=== PATIENT | female | born 1975 | race Two or more races ===

== ENCOUNTER 2019-04-11 16:43 | Emergency (ER) | payer MEDICAID ==
[~2019-04-11] VITALS: Ht 139.7 cm; Wt 63.8 kg
[2019-04-11 17:50] LABS: CLARITY,URINE CLOUDY (Clear); COLOR,URINE YELLOW (Yellow); GLUCOSE, URINE NEGATIVE (Neg); KETONES,URINE NEGATIVE (Neg); LEUKOCYTE ESTERASE ,URINE MODERATE (Neg); NITRITES, URINE NEGATIVE (Neg); OCCULT BLOOD,URINE LARGE (Neg); PH,URINE 6.5 (4.8-8.0); PROTEIN,URINE 30 mg/dl (Neg); UROBILINOGEN,URINE 0.2 E.U/dL (0.2-1.0)
[2019-04-11 17:55] LABS: UA COLLECTION TYPE CLN CATCH MIDSTREAM
[2019-04-11 17:59] LABS: BACTERIA,URINE FEW /HPF (Neg); MUCUS STRANDS FEW /LPF (Neg); RBC,URINE 20-50 /HPF (0-2); SQUAMOUS EPITHELIAL CELL,UR FEW /LPF (FEW); WBC,URINE 30-50 /HPF (0-4)
[2019-04-11] MEDS ORDERED: CEPH-572 PO (18:19)
[2019-04-11 18:29] VITALS: BP 117/70
== END 2019-04-11 18:30 | disposition home or self-care (01) ==
LOC: ER 16:44
DX: R07.89 Other chest pain (principal); N39.0 Urinary tract infection, site not specified
CPT/HCPCS: 81001; 87077; 87088; 87186; 93005; 99284

== ENCOUNTER 2024-11-12 08:12 | Day surgery (SDC) | payer MEDICARE, MEDICAID ==
[2024-11-12] VITALS (7 sets, daily range): BP systolic 80–95; BP diastolic 40–55; PULSE 50–56; RESP 12–16; O2SAT 97–100
[~2024-11-12 08:12] MED LIST: ATOR10TA10 PO; HYDR-3686 PO; LEVO50CA5 PO; MIDAZolam 1 MG/ML 5ML VIAL ONE; QUET25TA PO; SIME125C43 PO; fentaNYL/PF 50MCG/1 ML 2ML syringe ONE; ringers solution, lacted 1,000 ML IV SCH
--- NOTE | 2024-11-13 15:19 | PATHOLOGY REPORT ---
[facility] [address] [place] [address] SURGICAL PATHOLOGY REPORT CaseNumber: [id number] Surgeon:Joel Spring M.D. CLINICAL INFORMATION CLINICAL INFORMATION: Abdominal pain. DIAGNOSIS DIAGNOSIS: STOMACH, ANTRUM; BIOPSY - MILD TO MODERATE CHRONIC INFLAMMATION. - NEGATIVE FOR INTESTINAL METAPLASIA. - NEGATIVE FOR H. PYLORI BY IMMUNOPEROXIDASE STUDY. - NEGATIVE FOR ATROPHY. - NEGATIVE FOR DYSPLASIA/NEOPLASIA. MICROSCOPIC DESCRIPTION MICROSCOPIC DESCRIPTION: One H&E stained slide is examined. Present are 3 pieces of gastric mucosa, two with well-developed specialized compartment -no evidence of atrophy. There is a mild to focally moderate chronic inflammatory infiltrate composed predominantly of lymphocytes centered in the superficial compartment of specialized mucosa and antral mucosal piece. There is no significant active inflammation and no intestinal metaplasia by routine light microscopy. Immunoperoxidase study for H. pylori does not highlight organisms. There is no dysplasia/neoplasia. GROSS DESCRIPTION GROSS DESCRIPTION: Received in a container of formalin labeled with the patient's name, number, and "antrum biopsy" are 3 pieces of monson tissue 0.2-0.8 x 0.2 x 0.1 cm. The specimen is entirely submitted as A1. The time at which the specimen was removed was not provided. The time at which the specimen was placed in formalin was not provided. Electronically signed by: Alphonso Ybarra M.D. 11/13/2024 2:41:00 PM
[2024-11-14] MEDS ORDERED: PANT40SU2 PO (09:42)
== END 2024-11-12 11:00 | disposition home or self-care (01) ==
LOC: GI LAB 08:12
PROVIDERS: ATTEND Internal Medicine Gastroenterology
DX: R10.13 Epigastric pain (principal); K31.89 Other diseases of stomach and duodenum; K25.9 Gastric ulcer, unspecified as acute or chronic, without hemorrhage or perforation; E03.9 Hypothyroidism, unspecified; E66.9 Obesity, unspecified; E78.2 Mixed hyperlipidemia; Z79.890 Hormone replacement therapy; Z79.899 Other long term (current) drug therapy; Z68.31 Body mass index [BMI] 31.0-31.9, adult
CPT/HCPCS: 43239; 82948; 88305; 88342; A4620; J2250; J3010; J7120; Z7512; Z7610; 99152

== ENCOUNTER 2024-11-19 07:59 | Day surgery (SDC) | payer MEDICARE, MEDICAID ==
[2024-11-12 09:48] VITALS: BP 118/48; PULSE 64; RESP 16; TEMP 98.1; O2SAT 99
[2024-11-12 09:51] VITALS: RESP 16; O2SAT 99
[2024-11-12 11:29] VITALS: BP 118/48; PULSE 64; RESP 16; TEMP 98.1; O2SAT 99
[2024-11-12 11:30] VITALS: BP 118/48; PULSE 64; RESP 16; TEMP 98.1; O2SAT 99
[2024-11-12 11:32] VITALS: RESP 16; O2SAT 99
[2024-11-19] VITALS (10 sets, daily range): BP systolic 85–115; BP diastolic 43–65; PULSE 57–85; RESP 15–20; TEMP 98.1–98.6; O2SAT 97–99
[~2024-11-19] VITALS: Ht 139.7 cm; Wt 62.2 kg
[~2024-11-19 07:59] MED LIST changes: -MIDAZolam 1 MG/ML 5ML VIAL ONE; +PANT40SU2 PO; -fentaNYL/PF 50MCG/1 ML 2ML syringe ONE
[2024-11-19] MEDS ORDERED: midazolam 1 mg/ML 2ml injection ONE (10:43)
[2024-11-19] MEDS ORDERED: propofol inj 20 ML IV ONE (10:58)
== END 2024-11-19 12:05 | disposition home or self-care (01) ==
LOC: GI LAB 07:59
PROVIDERS: ATTEND Internal Medicine Gastroenterology
DX: R10.84 Generalized abdominal pain (principal); K57.30 Diverticulosis of large intestine without perforation or abscess without bleeding; E03.9 Hypothyroidism, unspecified; E78.2 Mixed hyperlipidemia; E66.9 Obesity, unspecified; F41.9 Anxiety disorder, unspecified; Z79.890 Hormone replacement therapy; Z79.899 Other long term (current) drug therapy; Z68.31 Body mass index [BMI] 31.0-31.9, adult
CPT/HCPCS: 45378; 82948; A4620; A6449; J2250; J2704; J7120; Z7512; Z7610